=== PATIENT | female | born 1960 | race Caucasian/White ===

== ENCOUNTER 2018-02-06 08:00 | Outpatient (CLI) | payer MEDICARE, MEDICAID ==
[~2018-02-06] VITALS: Ht 157.5 cm; Wt 99.8 kg
[~2018-02-06 08:00] MED LIST: BUPR150T6 PO; GABA-532 PO; HYDR-3973 PO; TIZA-248 PO; TOP100T PO; VENL75CA61 PO; albuterol 2.5 MG/3 ML nebule NEB ONE; cefazolin/dext.iso 2gm/50ml 50 ML IV ONE; famotidine 20mg tablet PO ONE; ringers solution, lacted 1,000 ML IV SCH
== END 2018-02-06 08:05 | disposition home or self-care (01) ==
LOC: PRE-OP 08:00 → EDSTATUS 13:45
PROVIDERS: ATTEND Surgery
DX: K43.9 Ventral hernia without obstruction or gangrene (principal); Z53.9 Procedure and treatment not carried out, unspecified reason; K66.0 Peritoneal adhesions (postprocedural) (postinfection)
CPT/HCPCS: J0690; J7120